=== PATIENT | male | born 1965 | race Caucasian/White ===

== ENCOUNTER 2017-09-22 21:20 | Emergency (ER) | payer BC ==
[~2017-09-22] VITALS: Ht 188 cm; Wt 95.3 kg
[2017-09-22] MEDS ORDERED: ASPIR 8181 M1 PO (21:39)
[2017-09-23 00:37] VITALS: BP 131/88
== END 2017-09-23 00:40 | disposition home or self-care (01) ==
LOC: ER 21:20
DX: S16.1XXA Strain of muscle, fascia and tendon at neck level, initial encounter (principal); S39.011A Strain of muscle, fascia and tendon of abdomen, initial encounter; M25.572 Pain in left ankle and joints of left foot; F10.99 Alcohol use, unspecified with unspecified alcohol-induced disorder; Z98.890 Other specified postprocedural states; Z88.0 Allergy status to penicillin; Z88.8 Allergy status to other drugs, medicaments and biological substances; V43.52XA Car driver injured in collision with other type car in traffic accident, initial encounter; Y93.89 Activity, other specified; Y92.89 Other specified places as the place of occurrence of the external cause; Y99.8 Other external cause status